=== PATIENT | female | born 1965 | race Caucasian/White ===

== ENCOUNTER 2019-01-25 15:15 | Outpatient (CLI) | payer OTHER ==
--- NOTE | 2019-01-25 16:22 | MRI ---
MRI LUMBAR SPINE WITHOUT CONTRAST: 01/25/2019 HISTORY: Lumbar radiculopathy, lumbar soreness, and right lower extremity radiculopathy. COMPARISON: 06/13/2014 TECHNIQUE: Multiplanar, multisequence MR imaging of the lumbar spine obtained without contrast. FINDINGS: The sagittal STIR imaging demonstrates no focal area of osseous marrow edema. On the basis of five lumbar type vertebral bodies, the conus medullaris terminates at the T12-L1 leve l. T12-L1: There is a right paracentral disc protrusion, which is more prominent than on the prior exam . There is disc space narrowing, disc desiccation, and disc bulge as well. There is mild/moderate central canal stenosis, with moderate right lateral recess stenosis, worsened. Bilateral facet hyper trophy present. No significant neural foraminal stenosis. L1-L2: There is disc space narrowing, disc desiccation, and central annular tear with mild/moderate slightly worsened central canal stenosis. Bilateral facet hypertrophy, right greater than left. No significant neural foraminal stenosis. L2-L3: There is disc space narrowing, disc desiccation, and mild disc bulge. Prominent bilateral fa cet hypertrophy is noted. Round T2 hyperintense structure in the right paracentral region, posteriorly, noted, measuring 9 mm, suggesting a synovial cyst. This results in severe central canal stenosis. Bilateral facet hypertrophy noted with no significant neural foraminal stenosis. Central canal stenosis and synovial cyst formation at L2-L3 is new when compared to the prior study. L3-L4: Bilateral laminectomy changes are noted. Bilateral facet hypertrophy noted. There is no sig nificant central canal stenosis. There is mild right and moderate left neural foraminal stenosis. L4-L5: Bilateral facet hypertrophy. Mild bilateral neural foraminal stenosis. No significant centr al canal stenosis. L5-S1: There is disc space narrowing and disc desiccation. There is a small left paracentral/left f oraminal disc protrusion, as seen on the prior examination. Probable posterior osteophyte formation noted in this region as well. Mild bilateral facet hypertrophy. No significant neural for aminal stenosis noted on either side. Mild stable left lateral recess stenosis. The imaged retroperitoneal structures demonstrate no acute findings. IMPRESSION: Multilevel degenerative change within the cervical spine, as detailed above, worsened since the 2013 examination. Transcribed Date/Time: 01/25/2019 5:46 PM
== END 2019-01-25 15:16 | disposition home or self-care (01) ==
LOC: BICMRI 15:15
PROVIDERS: ATTEND Family Medicine
DX: M47.26 Other spondylosis with radiculopathy, lumbar region (principal); M47.25 Other spondylosis with radiculopathy, thoracolumbar region; M47.27 Other spondylosis with radiculopathy, lumbosacral region
CPT/HCPCS: 72148

== ENCOUNTER 2019-05-03 07:30 | Day surgery (SDC) | payer OTHER ==
[2019-04-30 10:41] VITALS: BMI 32.8
[2019-05-03 08:55] LABS: Hemoglobin 12.2 g/dL (12.0-16.0); Mean Corpuscular HGB CONC 33.6 g/dL (32.0-36.0); Mean Corpuscular Hemoglobin 29.8 pg (27.0-31.0); Mean Corpuscular Volume 88.7 fL (78.0-98.0); Mean Platelet Volume 7.7 fL (7.4-10.4); Platelet Count 209 thou/uL (130-400); RBC Distribution Width 11.5 % (11.5-14.5); White Blood Cell (WBC) Count 7.5 thou/uL (4.8-10.8)
[2019-05-03 08:57] LABS: Anion Gap 9 mmol/L (10-20); BUN (Urea Nitrogen) 9 mg/dL (9.8-20.1); Calc. Creatinine Clearance 157 mL/min (70-130); Calcium 8.6 mg/dL (7.8-10.44); Carbon Dioxide 28 mmol/L (22-29); Chloride 108 mmol/L (98-107); Estimated GFR-MDRD Greater than 90; Glucose 85 mg/dL (70-105); Potassium 4.3 mmol/L (3.5-5.1); Sodium 141 mmol/L (136-145)
[2019-05-03] MEDS ORDERED: Clindamycin/D5W 900 mg/50 ml Premix Bag ONE (09:03)
[2019-05-03] MEDS ORDERED: Levofloxacin 500 mg/D5W 100 ml Premix Bag ONE (09:03)
[2019-05-03] MEDS ORDERED: Midazolam HCl 2 mg/2 ml Vial ONE (09:03)
[2019-05-03] MEDS ORDERED: Fentanyl 100 MCG/2 ML VIAL ONE ×4 (09:12→11:37)
[2019-05-03 09:16] LABS: Band 2 % (5-11); Eosinophils 2 % (0-10); Lymphocytes 57 % (21-51); MDiff Complete? YES; Monocytes 3 % (0-10); Neutrophil 36 % (42-75); RBC Morphology Normal
--- NOTE | 2019-05-03 10:59 | OP ---
DATE OF PROCEDURE: 05/03/2019 [employer] ENGINEER: Mei Angela PA-C PROCEDURE PERFORMED: L2-L3 laminectomy. DESCRIPTION OF PROCEDURE: The patient was brought to the operating room and intubated. She was rolled in a prone position on gel-filled chest rolls. An incision was opened, then L2 and L3 were exposed. At the superior margin of the previous scar, we got beneath the L3 lamina, performed complete L3 and inferior L2 laminectomy, completely decompressed the neural elements at L2-L3. After complete decompression was secured, the wound was extensively irrigated. MAC hemostasis was secured. Vancomycin powder was applied and the wound was closed in anatomic layers. Job ID: [id number]
[2019-05-03] MEDS ORDERED: Non-Formulary Medication 1 EACH PO PRN (11:11)
[2019-05-03] MEDS ORDERED: HYDROmorphone 2 MG/ML VIAL SLOW IVP PRN (11:11)
[2019-05-03] MEDS ORDERED: Promethazine HCl 25 MG/ML VIAL IM/IV PRN (11:11)
[2019-05-03] MEDS ORDERED: Ondansetron HCl/PF 4 MG/2 ML Vial IVP PRN (11:11)
[2019-05-03] MEDS ORDERED: tiZANidine HCl 4 MG TAB ONE (12:07)
[2019-05-03] MEDS ORDERED: Morphine 4 MG/ML VIAL ONE (12:22)
[2019-05-03] MEDS ORDERED: HYDROcodone/Acetaminophen 5/325 mg Tablet ONE (13:20)
== END 2019-05-03 13:25 | disposition home or self-care (01) ==
LOC: SDC 07:30
PROVIDERS: ATTEND Neurological Surgery
PROC: 01NB0ZZ Release Lumbar Nerve, Open Approach (ICD-10-PCS; principal; 2019-05-03)
DX: M48.062 Spinal stenosis, lumbar region with neurogenic claudication (principal); I10 Essential (primary) hypertension; F17.200 Nicotine dependence, unspecified, uncomplicated; R73.03 Prediabetes; Z79.899 Other long term (current) drug therapy; Z88.0 Allergy status to penicillin; Z98.890 Other specified postprocedural states
CPT/HCPCS: 36415; 76000; 80048; 85025; J1956; J2250; J2270; J3010; J3370; J3490